=== PATIENT | female | born 1940 | race Caucasian/White ===

== ENCOUNTER → 2016-11-14 | Outpatient (CLI) | payer OTHER, BC ==
[2016-11-14 13:27] LABS: ALT/SGPT 43 U/L (12-78); AST/SGOT 25 U/L (15-37); BLOOD UREA NITROGEN 32 mg/dl (7-18); BUN/CREATININE RATIO 26.4 (10-20); CALCIUM 9.8 mg/dl (8.5-10.1); CARBON DIOXIDE 29 mmol/L (21-32); CHLORIDE 101 mmol/L (98-107); CHOLESTEROL 171 mg/dl (0-200); GLUCOSE 152 mg/dl (70-99); POTASSIUM 3.7 mmol/L (3.5-5.1); SODIUM 139 mmol/L (136-145); TRIGLYCERIDES 275 mg/dl (0-150); VERY LOW DENSITY LIPOPROT CALC 55 mg/dl
[2016-11-14 13:31] LABS: CHOLESTEROL/HDL RATIO 4.4; HDL CHOLESTEROL 39 mg/dl; LDL CHOLESTEROL CALCULATED 77 mg/dl
[2016-11-14 13:48] LABS: ESTIMATED AVERAGE GLUCOSE 177 mg/dl; HA1C FLAG Normal (Normal)
== END | disposition home or self-care (01) ==
LOC: C.LABMFLN 07:40
PROVIDERS: ATTEND Family Medicine
DX: E78.5 Hyperlipidemia, unspecified (principal); I25.10 Atherosclerotic heart disease of native coronary artery without angina pectoris; I10 Essential (primary) hypertension; E11.9 Type 2 diabetes mellitus without complications

== ENCOUNTER → 2017-04-21 | Outpatient (CLI) | payer OTHER ==
[2017-04-21 13:47] LABS: ALT/SGPT 74 U/L (12-78); BLOOD UREA NITROGEN 33 mg/dl (7-18); BUN/CREATININE RATIO 23.8 (10-20); CALCIUM 9.9 mg/dl (8.5-10.1); CARBON DIOXIDE 29 mmol/L (21-32); CHLORIDE 102 mmol/L (98-107); CHOLESTEROL 182 mg/dl (0-200); GLUCOSE 141 mg/dl (70-99); POTASSIUM 4.1 mmol/L (3.5-5.1); SODIUM 137 mmol/L (136-145)
[2017-04-21 13:50] LABS: ALB/GLOB RATIO 1.5 (0.9-2); ALKALINE PHOSPHATASE 40 U/L (45-117); AST/SGOT 41 U/L (15-37); CHOLESTEROL/HDL RATIO 4.3; HDL CHOLESTEROL 42 mg/dl; LDL CHOLESTEROL CALCULATED 74 mg/dl; TRIGLYCERIDES 329 mg/dl (0-150); VERY LOW DENSITY LIPOPROT CALC 66 mg/dl
[2017-04-21 14:01] LABS: RATIO 32.6 mcg/mg (0-30.0)
[2017-04-21 14:03] LABS: ESTIMATED AVERAGE GLUCOSE 143 mg/dl; HA1C FLAG Normal (Normal)
--- NOTE | 2017-04-28 14:05 | CODING QUERY MEDICAL NECESSITY ---
CQSUPPORTING DIAGNOSIS NEEDED A supporting diagnosis is required for the test/procedure performed on this patient in order for us to be reimbursed by the patient's insurance. Please provide a supporting diagnosis for the following test/procedure listed below next to the test name along with your signature. *If there is no additional diagnosis for this patient that would support the following test/procedure please document that below next to the test/procedure. Test(s)/Procedure(s) that require a supporting diagnosis: VANDANA 04/21/17 GLYCATED HEMOGLOBIN TEST Provider Signature: Date: Thank you Jamila Desir [facility] Information Management Once completed, please kindly fax back to [phone] For questions please call [phone]
== END | disposition home or self-care (01) ==
LOC: C.LABMFLN 10:30
PROVIDERS: ATTEND Family Medicine
DX: E78.5 Hyperlipidemia, unspecified (principal); I25.10 Atherosclerotic heart disease of native coronary artery without angina pectoris; I10 Essential (primary) hypertension

== ENCOUNTER → 2017-07-04 | Outpatient (CLI) | payer OTHER ==
[2017-07-04 18:07] LABS: BLOOD UREA NITROGEN 30 mg/dl (7-18); BUN/CREATININE RATIO 18.8 (10-20); CALCIUM 10.2 mg/dl (8.5-10.1); CARBON DIOXIDE 26 mmol/L (21-32); CHLORIDE 102 mmol/L (98-107); GLUCOSE 113 mg/dl (70-99); SODIUM 136 mmol/L (136-145)
== END | disposition home or self-care (01) ==
LOC: C.LABMFLN 11:14
PROVIDERS: ATTEND Family Medicine
DX: I10 Essential (primary) hypertension (principal)

== ENCOUNTER → 2017-10-02 | Outpatient (CLI) | payer OTHER ==
[2017-10-02 13:16] LABS: HEMOGLOBIN A1C 6.9 % (4.5-5.6)
[2017-10-02 13:34] LABS: ALBUMIN 4.6 gm/dl (3.4-5.0); ALT/SGPT 48 U/L (12-78); BLOOD UREA NITROGEN 39 mg/dl (7-18); CALCIUM 9.9 mg/dl (8.5-10.1); CARBON DIOXIDE 27 mmol/L (21-32); CHOLESTEROL 152 mg/dl (0-200); CREATININE 1.32 mg/dl (0.60-1.20); GLUCOSE 117 mg/dl (70-99); SODIUM 136 mmol/L (136-145)
[2017-10-02 13:37] LABS: ALKALINE PHOSPHATASE 43 U/L (45-117); AST/SGOT 27 U/L (15-37); LDL CHOLESTEROL CALCULATED 69 mg/dl; TOTAL PROTEIN 7.3 gm/dl (6.4-8.2)
[2017-10-02 14:12] LABS: CREATININE RANDOM URINE 87.3 mg/dl
== END | disposition home or self-care (01) ==
LOC: C.LABMFLN 09:01
PROVIDERS: ATTEND Family Medicine
DX: E78.5 Hyperlipidemia, unspecified (principal); I25.10 Atherosclerotic heart disease of native coronary artery without angina pectoris; E11.9 Type 2 diabetes mellitus without complications; I10 Essential (primary) hypertension

== ENCOUNTER → 2018-03-16 | Outpatient (CLI) | payer OTHER ==
[2018-03-16 18:37] LABS: ALBUMIN 4.4 gm/dl (3.4-5.0); ALKALINE PHOSPHATASE 68 U/L (45-117); ALT/SGPT 177 U/L (12-78); AST/SGOT 31 U/L (15-37); BLOOD UREA NITROGEN 42 mg/dl (7-18); CARBON DIOXIDE 27 mmol/L (21-32); CREATININE 1.33 mg/dl (0.60-1.20); GLUCOSE 95 mg/dl (70-99); LIPASE 229 U/L (73-393); POTASSIUM 3.7 mmol/L (3.5-5.1); SODIUM 137 mmol/L (136-145); TOTAL PROTEIN 7.5 gm/dl (6.4-8.2)
== END | disposition home or self-care (01) ==
LOC: C.LABMFLN 15:09
PROVIDERS: ATTEND Family Medicine
DX: R10.13 Epigastric pain (principal)

== ENCOUNTER → 2018-03-27 | Outpatient (CLI) | payer OTHER ==
[2018-03-27 13:28] LABS: ALBUMIN 4.2 gm/dl (3.4-5.0); TOTAL PROTEIN 7.2 gm/dl (6.4-8.2)
== END | disposition home or self-care (01) ==
LOC: C.LABMFLN 08:52
PROVIDERS: ATTEND Family Medicine
DX: R74.0 Nonspecific elevation of levels of transaminase and lactic acid dehydrogenase [LDH] (principal)

== ENCOUNTER 2019-07-17 05:06 | Inpatient (IN) ==
--- NOTE | 2019-06-14 16:07 | PAT Medication Instructions ---
Medication Instructions Date of Service June 14, 2019 Home Medications Medication Instructions Recorded diphenhydramine 25 mg capsule 25 mg PO DAILY PRN #90 cap 01/29/19 hydralazine 25 mg tablet 25 mg PO TID #270 tab 01/29/19 lancets 30 gauge #100 ea 01/29/19 metformin 500 mg tablet 500 mg PO BID #180 tab 01/29/19 nitroglycerin 0.4 mg sublingual 0.4 mg SL Q5M PRN #30 tab 01/29/19 tablet lancets 33 gauge #30 ea 02/20/19 OneTouch Verio strips #100 ea NS 03/28/19 tramadol 50 mg tablet 50 mg PO BID PRN #30 tab 05/30/19 diphenhydramine 25 mg capsule 25 mg PO DAILY PRN hydralazine 25 mg tablet 25 mg PO TID metformin 500 mg tablet 500 mg PO BID nitroglycerin 0.4 mg sublingual tablet 0.4 mg SL Q5M PRN ipratropium bromide 42 mcg (0.06 %) nasal spray 2 sprays INTNAS HS tramadol 50 mg tablet 50 mg PO BID PRN aspirin [Adult Aspirin Regimen] 81 mg PO QAM atorvastatin 80 mg PO HS cetirizine [Zyrtec] 10 mg PO HS cholecalciferol (vitamin D3) 1,000 units PO QAM diltiazem HCl 360 mg PO QAM fenofibrate 160 mg PO QAM lisinopril 40 mg PO QAM omega 3-ujy-swd-fish oil [Fish Oil] 1 cap PO BID pantoprazole 40 mg PO QAM triamcinolone acetonide [Nasacort] 1 - 2 spray INTRANASAL QAM Continue as directed nitroglycerin 0.4 mg sublingual tablet 0.4 mg SL Q5M PRN (if needed) STOP taking 2 weeks before surgery (or as soon as possible if surgery is within 2 weeks) omega 1-spe-uoa-fish oil [Fish Oil] 1 cap PO BID STOP taking 48 hours before surgery fenofibrate 160 mg PO QAM DO NOT take the morning of surgery diphenhydramine 25 mg capsule 25 mg PO DAILY PRN metformin 500 mg tablet 500 mg PO BID cholecalciferol (vitamin D3) 1,000 units PO QAM lisinopril 40 mg PO QAM Take morning of surgery With a small sip of water, OTHERWISE NOTHING TO EAT OR DRINK AFTER MIDNIGHT: hydralazine 25 mg tablet 25 mg PO TID tramadol 50 mg tablet 50 mg PO BID PRN (okay to take up to 4 hours prior to surgery if needed) aspirin [Adult Aspirin Regimen] 81 mg PO QAM diltiazem HCl 360 mg PO QAM pantoprazole 40 mg PO QAM triamcinolone acetonide [Nasacort] 1 - 2 spray INTRANASAL QAM Take evening before surgery diphenhydramine 25 mg capsule 25 mg PO DAILY PRN (if needed) hydralazine 25 mg tablet 25 mg PO TID metformin 500 mg tablet 500 mg PO BID ipratropium bromide 42 mcg (0.06 %) nasal spray 2 sprays INTNAS HS tramadol 50 mg tablet 50 mg PO BID PRN (if needed) atorvastatin 80 mg PO HS cetirizine [Zyrtec] 10 mg PO HS Other Notes If you have any questions please call us at [phone] or [phone] or [phone] or [phone]
--- NOTE | 2019-06-18 09:40 | Anesthesiology Consultation ---
Date of Service June 18, 2019 Assessment & Plan (1) Encounter for pre-operative examination: - Awaiting review preop testing (labs). - Awaiting cardiology office visit (per patient, scheduled to see cardiology 06/21). - Check [facility] AM DOS Chart Review Chart Review: Patient seen in Pre Admission Testing History Surgery Operation Date: 07/17/19 09:00 Proposed Procedures p Left Total Knee Arthroplasty - Shmuel Beach MD Height/Weight Height: 5 ft 2 in Weight: 75.7 kg Allergies Allergy/AdvReac Type Severity Reaction Status Date / Time cefuroxime [From Ceftin] Allergy Unknown NAUSEA AND Verified 06/11/19 11:30 VOMITING ciprofloxacin [From Cipro] Allergy Unknown NAUSEA Verified 06/11/19 11:30 VOMITING-W ORAL FORM nalbuphine [From Nubain] Allergy Unknown Unknown Verified 06/11/19 11:30 codeine AdvReac Unknown NAUSEA AND Verified 06/11/19 11:30 VOMITING hydrocodone [From Vicodin] AdvReac Unknown NAUSEA AND Verified 06/11/19 11:30 VOMITING Medications Home Medications Medication Instructions Recorded Confirmed Last Taken diphenhydramine 25 mg capsule 25 mg PO DAILY PRN #90 cap 01/29/19 06/11/19 Unknown hydralazine 25 mg tablet 25 mg PO TID #270 tab 01/29/19 06/11/19 Unknown lancets 30 gauge #100 ea 01/29/19 06/11/19 Unknown metformin 500 mg tablet 500 mg PO BID #180 tab 01/29/19 06/11/19 Unknown nitroglycerin 0.4 mg sublingual 0.4 mg SL Q5M PRN #30 tab 01/29/19 06/11/19 Unknown tablet lancets 33 gauge #30 ea 02/20/19 06/11/19 Unknown OneTouch Verio strips #100 ea NS 03/28/19 06/11/19 Unknown ipratropium bromide 42 mcg (0.06 2 sprays INTNAS HS ml 05/29/19 06/11/19 Unknown %) nasal spray tramadol 50 mg tablet 50 mg PO BID PRN #30 tab 05/30/19 06/11/19 Unknown aspirin [Adult Aspirin Regimen] 81 mg PO QAM 06/10/19 06/11/19 Unknown atorvastatin 80 mg PO HS 06/10/19 06/11/19 Unknown cetirizine [Zyrtec] 10 mg PO HS 06/10/19 06/11/19 Unknown cholecalciferol (vitamin D3) 1,000 units PO QAM 06/10/19 06/11/19 Unknown diltiazem HCl 360 mg PO QAM 06/10/19 06/11/19 Unknown fenofibrate 160 mg PO QAM 06/10/19 06/11/19 Unknown lisinopril 40 mg PO QAM 06/10/19 06/11/19 Unknown omega 2-oax-ocj-fish oil [Fish Oil] 1 cap PO BID 06/10/19 06/11/19 Unknown pantoprazole 40 mg PO QAM 06/10/19 06/11/19 Unknown triamcinolone acetonide [Nasacort] 1 - 2 spray INTRANASAL QAM 06/10/19 06/11/19 Unknown Past Medical History Medical History CAD (coronary artery disease) s/p CABG X 2 (1995) Cancer malignant melanoma arm s/p excision Chronic back pain Diabetes mellitus, type 2 NIDDM Diverticular disease GERD (gastroesophageal reflux disease) controlled Hiatal hernia small Hyperlipidemia Hypertension Obesity Exercise / Class Metabolic Activity III < 4 Walking/Shop/Light housework Past Family History Family History Son Family history of diabetes mellitus Brother Family history of diabetes mellitus Sister Family history of diabetes mellitus Other No pertinent family history Past Surgical History Surgical History H/O colonoscopy History of cardiac cath 1995= NO STENTS/SUBSEQUENT CABG X 2 History of colectomy FOR DIVERTICULITIS History of esophagogastroduodenoscopy (EGD) + DILITATION History of knee surgery History of tubal ligation Hx of bilateral breast reduction surgery Hx of breast reduction, elective Status post creation of urethral sling by suprapubic approach Past Anesthesia History No Hx of Anesthesia Complications and No Family Hx of Anesthesia Complications History of PONV No Hx of PONV and Hx of Motion Sickness Social History Smoking Status: Never smoker Do You Dip or Chew Tobacco: No Hx Alcohol Use: No Hx Substance Use: No Review of Systems Reflux controlled. Patient denies chest pain, shortness of breath, cough, wheezing, palpitations. Physical Exam Vital Signs VITALS BP 130/77 P 76 TEMP 98.4 SP02 95%RA RESP 18 PHYSICAL Full neck and c-spine range of motion. Full TMJ range of motion. TMD 3 finger breaths Mallampati Score 1 Dentition: missing molars Lungs: clear throughout to auscultation Cardiac: regular rate and rhythm, no murmurs noted Spine: normal Carotid arteries: negative bruit Extremities: no edema Testing Laboratory Results 06/03/19 WBC 4.87 H/H 11.4/33.6 PLATELETS 267 SODIUM 138 POTASSIUM 4.3 CHLORIDE 102 CO2 25 BUN 26 CREATININE 1.2 GLUCOSE 137 Electrocardiogram Date: 06/02/19 NSR at 83bpm. "Normal" EKG. Chest X-Ray Date: 06/01/19 Partial elevation/eventration of the right hemidiaphragm. No focal parenchymal consolidation. No pulmonary vascular congestion. Somewhat tortuous thoracic aorta with atherosclerosis. s/p median sternotomy.
[2019-06-18 11:18] LABS: Basophils # (auto) 0.04 K/uL (0-0.2); Basophils % (auto) 0.8 %; Eosinophils # (auto) 0.06 K/uL (0-0.5); Eosinophils % (auto) 1.3 %; Hematocrit (blood only) 37.8 % (37-47); Hemoglobin 12.8 g/dL (12.0-16.0); Lymphocytes # (auto) 1.97 K/uL (1.2-3.4); Lymphocytes % (auto) 41.6 %; Mean Corpuscular Hemoglobin 29.8 pg (25-34); Mean Corpuscular Hgb Conc 33.9 g/dL (32-36); Mean Corpuscular Volume 88.1 fL (80-100); Mean Platelet Volume 10.8 fL (7.4-10.4); Monocytes # (auto) 0.41 K/uL (0.11-0.59); Monocytes % (auto) 8.6 %; Neutrophils # (auto) 2.26 K/uL (1.4-6.5); Neutrophils % (auto) 47.7 %; Platelet Count 305 K/uL (130-400); RDW Coefficient of Variation 13.3 % (11.5-14.5); RDW Standard Deviation 42.5 fL (36.4-46.3); Red Blood Count 4.29 M/uL (4.2-5.4); White Blood Count 4.74 K/uL (4.8-10.8)
[2019-06-18 11:22] LABS: Appearance Urine Clear (Clear); Bacteria Urine Automated 4+ (Negative); Bilirubin Urine Negative (Negative); Blood Urine Negative (Negative); Cast Urine Automated 0 /lpf (0-5); Color Urine Yellow; Glucose Urine UA Negative (Negative); Ketones Urine Negative (Negative); Leukocyte Esterase Urine 1+ (Negative); Nitrite Urine Negative (Negative); Protein Urine Negative (Negative); RBC Urine Automated 0-4 /hpf (0-4); Specific Gravity Urine 1.019 (1.000-1.030); Urobilinogen Urine Negative (Negative)
[2019-06-18 11:26] LABS: Estimated Average Glucose 171 mg/dl; Hemoglobin A1C 7.6 % (4.5-5.6)
[2019-06-18 11:58] LABS: Partial Thromboplastin Time 26.2 Seconds (21.0-31.0); Prothrombin Time 10.2 Seconds (9.0-12.0)
--- NOTE | 2019-07-16 18:40 | History and Physical Report ---
DATE OF ADMISSION: 07/17/2019 CHIEF COMPLAINT: Chronic left knee pain. HISTORY OF PRESENT ILLNESS: This is an 79-year-old female patient of Dr. Beach'minerva complaining of chronic left knee pain, longstanding, now progressively getting worse. The patient has failed conservative treatment including intra-articular injections, anti-inflammatories, tramadol, home exercise program and the use of a brace. The patient has been diagnosed with end-stage osteoarthritis per clinical and radiographic exams. The patient wished to proceed with a left total knee arthroplasty. PAST MEDICAL HISTORY: Hypertension, hypercholesterolemia, diabetes mellitus, acid reflux, hiatal hernia. SOCIAL HISTORY: Nonsmoker, nondrinker. FAMILY HISTORY: Noncontributory. REVIEW OF SYSTEMS: Chronic left knee pain and instability. Otherwise, denies any shortness of breath, chest pain, nausea, vomiting or any other joint complaints. PAST SURGICAL HISTORY: Tubal ligation, left and right breast reduction surgery, and bypass surgery. ALLERGIES: CODEINE, HYDROCODONE, CIPROFLOXACIN, CEFUROXIME, FENOFIBRATE, AND nalbuphine.. Again, she is able to use tramadol. PHYSICAL EXAMINATION: GENERAL: A well-developed, well-nourished 79-year-old female in no acute distress. She is alert and oriented x3 and pleasant. HEENT: Normocephalic, atraumatic. Extraocular motions are intact. Pupils are equal and reactive to light. HEART: Regular rate and rhythm, no murmurs. LUNGS: Clear. ABDOMEN: Soft, nontender, bowel sounds present. EXTREMITIES: Left knee reveals a varus deformity with limited range of motion of negative 10 to 130 degrees. She has a mild effusion with medial joint line tenderness. She has 5/5 strength. Neurologically and neurovascularly, she is intact in her left lower extremity. DIAGNOSES: Left knee end-stage osteoarthritis, hypertension, hypercholesterolemia, diabetes mellitus, acid reflux, hiatal hernia. PLAN: The patient was advised of her diagnosis. Indications, risks, benefits, postop course have all been reviewed. The patient wished to proceed with a left total knee arthroplasty. Necessary consent forms, preoperative testing and clearances will be obtained. MALDONADO
[2019-07-17] MEDS: LR 500ML BOLUS, THEN 15ML/HR IV SCH ×2 (05:46→06:12)
[2019-07-17] MEDS ORDERED: ACETAMINOPHEN 500 MG TAB PO SCH (06:00)
[2019-07-17] MEDS ORDERED: METOCLOPRAMIDE HCL 10 MG TABLET PO SCH (06:00)
[2019-07-17] MEDS ORDERED: ROPIVACAINE 0.5% HCL/PF 150 MG, BUPIVACAINE 0.5% MPF 30 ML, EPINEPHrine 30MG/30ML (OR U... INSTIL SCH (06:00)
[2019-07-17] MEDS ORDERED: VANCOMYCIN HCL 1,250 MG in SODIUM CHLORIDE 0.9% 250 ML IV SCH ×2 (06:00→18:00)
[2019-07-17] MEDS ORDERED: GABAPENTIN 300 MG CAP PO SCH (06:00)
[2019-07-17] MEDS ORDERED: TRANEXAMIC ACID 1,000 MG **IV Pre-op IV SCH (06:00)
[2019-07-17] MEDS ORDERED: FAMOTIDINE 20 MG TAB PO SCH (06:00)
[2019-07-17] MEDS ORDERED: CeleBREX 200 MG CAP PO SCH (06:00)
[2019-07-17] MEDS ORDERED: BUPIVACAINE 0.5 % 5 MG/1 ML PF 10ML VIAL ONE (06:20)
[2019-07-17] MEDS ORDERED: BUPIVACAINE/EPINEPHRINE 0.25% 1:200,000 30 ML VIAL ONE (06:20)
[2019-07-17] MEDS ORDERED: DEXAMETHASONE SOD INJ 4 MG/ML VIAL ONE (06:21)
[2019-07-17] MEDS ORDERED: TRANEXAMIC ACID 1,000 MG **IV Intra-op IV SCH (06:30)
[2019-07-17] MEDS ORDERED: PROPOFOL IV EMULSION 10 MG/ML 20 ML VIAL IV ONE (06:31)
[2019-07-17] MEDS ORDERED: fentaNYL citrate 100 MCG/2 ML VIAL ONE (06:31)
[2019-07-17] MEDS ORDERED: ORTHO JOINT ANESTHETIC ONE (06:31)
[2019-07-17] MEDS ORDERED: MIDAZOLAM HCL 1 MG/ML 2ML VIAL ONE (06:31)
[2019-07-17] MEDS ORDERED: LIDOCAINE HCL 2% 2 ML VIAL/AMP(20MG/ML) INFIL ONE (06:31)
[2019-07-17] MEDS ORDERED: BACITRACIN INJ 50,000 UNIT VIAL ONE (06:32)
--- NOTE | 2019-07-17 06:43 | History & Physical Bridge Note ---
Date of Service July 17, 2019 History & Physical Bridge Note I have examined the patient, reviewed the History & Physical and in the interval since the performance of the History & Physical I have noted the following changes of clinical significance: no changes noted
[2019-07-17] MEDS ORDERED: ONDANSETRON INJ 2 MG/ML 2 ML VIAL ONE (07:30)
[2019-07-17] MEDS ORDERED: fentaNYL citrate 100 MCG/2 ML VIAL IV PRN (08:01)
[2019-07-17] MEDS ORDERED: ATROPINE SULFATE 0.1 MG/ML 10ML SYR IV PRN (08:01)
[2019-07-17] MEDS ORDERED: ONDANSETRON INJ 2 MG/ML 2 ML VIAL IV PRN ×2 (08:01→09:42)
[2019-07-17] MEDS ORDERED: ePHEDrine sulfate 50 MG/ML AMP IV PRN (08:01)
--- NOTE | 2019-07-17 08:24 | Operative Report ---
Post Operative Report Pre & Post Diagnosis Operation Date: 07/17/19 07:00 Pre-Op Diagnosis: LEFT KNEE OSTEOARTHRITIS Post-Op Diagnosis: LEFT KNEE OSTEOARTHRITIS I identified the patient and participated in the time-out.: Yes Procedure Operation Date: 07/17/19 07:00 Actual Procedures p Left Total Knee Arthroplasty(Left) - Shmuel Beach MD Surgeon Shmuel eBach MD Brushing Machine Operator Margarito ARDON Estimated Blood Loss 2 Findings Consistent with Post-Op Diagnosis Specimens Bone cuts Drains 2 Hemovac Anesthesia Type MAC Spinal Regional Complications none Disposition Accompanied Patient To Recovery: No Disposition: Recovery Room Indications 79-year-old female with chronic bilateral knee osteoarthritis left greater than right. Patient has tricompartmental osteoarthritis [id number] medial compartment varus knee. Description of Procedure Patient taken to the operating room the size under spinal MAC regional anesthesia. Patient was placed supine on the operating table. A pneumatic tourniquet was placed about the left upper thigh. The left lower extremity was prepped and draped in sterile fashion. Knee exam demonstrated 15 degree flexion contracture with flexion 130 degrees no instability. The leg was elevated exsanguinated with an Esmarch bandage and pneumatic tourniquet was raised to 300 millimeters of mercury. Skin incised sharply in longitudinal fashion. Subcutaneous flaps elevated. Incision was made through the medial retinaculum extending up in the mid third of the quadriceps tendon and down to the medial tibial tubercle. Intra-articular findings demonstrated tricompartment osteoarthritis with [id number] medial compartment and degeneration ACL. The [employer] triathlon total knee arthroplasty system was used. To expose the knee the infrapatellar fat pad was resected. The meniscal remnants and cruciate ligaments were resected. The anterior fat pad over the femur in the area of the anterior flange of the femoral component was resected. Lateral synovial bands release. The femur was exposed. An intramedullary drill hole was made into the canal. A guide anastasia was placed. Distal femoral cutting guide was adjusted to resect a 5 degree valgus cut with 10 millimeters distal femur resected. The knee was extended and a subperiosteal peel lateral release was performed around the patella. Patella width was measured and width was reproduced using a freehand cut technique and a 33 symmetrical patella component. The 3 drill holes were made and the excess lateral facet was beveled off to prevent any impingement. Attention was taken back to the femur which was exposed with retractors and the femoral sizing guide was pinned in position. The drill holes were placed in 3 of external rotation to match epicondylar axis. Femur sized for a 5 component. The 4-in-1 cutting block was placed and then the anterior posterior and chamfer cuts are made. The tibia was then subluxed. The external tibial cutting guide was just to make a perpendicular cut to the long axis of the tibia below the most deficient bone loss side. A lamina hide spreader was used and the flexion extension gaps were balanced. All posterior osteophytes removed. All meniscal remnants were resected. The tibia exposed and the trial tibial component size 4 was externally rotated in line with the tibial tubercle and pinned in position. The punch for stem was used. The notch cutting device was centered appropriately and the femoral notch cut was made. The femoral trial was inserted. Trial tibial inserts were placed and size 11 gave balanced ligaments through flexion and extension. Patella tracking was assessed. The patella tracked centrally. The trial components were then removed and the orthomix anesthetic cocktail was injected per protocol. The knee was then copiously irrigated with pulsatile lavage antibiotic solution. Final components were then cemented with Simplex cement. Final components were 5 posterior stabilized [place] triathlon left femoral component with pegs, for primary tibial baseplate, 4 x 11 millimeter posterior stabilized tibial poly-insert, 33 symmetrical patella. While the cement cured the Betadine soak was used per protocol. After cement cured further pulsatile lavage irrigation performed and 2 Hemovac drains were brought out laterally. The quadriceps tendon and medial retinaculum were closed with figure of 8 #1 Vicryl sutures. The knee was taken through full range of motion and the repair was secure. The subcutaneous tissues were closed with 2-0 Vicryl sutures. Skin was closed with elian. Sterile Silverlon dressings were applied. Patient procedure well. Margarito ARDON was my physician switchboard operator assistant who assisted in patient positioning prepping and draping,leg positioning ,soft tissue retraction and instrument management and participated in the closing and will participate in postoperative care of the patient. The patient tolerated the procedure well. I attest to the content of the Intraoperative Record and any orders documented therein. Any exceptions are noted below.
--- NOTE | 2019-07-17 09:25 | Anesthesiology Progress Note ---
Date of Service July 17, 2019 Anesthesia Post Procedure Vital Signs Vital Signs: Temp Pulse Pulse Resp BP Pulse Ox 07/17/19 09:20 36.7 C 77 14 181/75 H 95 07/17/19 09:10 78 14 180/71 H 94 07/17/19 09:00 82 14 174/77 H 96 07/17/19 08:53 36.7 C 82 12 164/79 H 96 07/17/19 05:43 36.8 C 74 18 181/89 H 94 Transfer of Care Handoff Completed per policy Notes Mental Status: alert / awake / arousable Patient Amnestic to Procedure: Yes Nausea / Vomiting: adequately controlled Pain: adequately controlled Airway Patency, RR, SpO2: stable & adequate BP & HR: stable & adequate Hydration State: stable & adequate Neuraxial Anesthesia: was administered and sensory block is resolving Anesthetic Complications: no major complications apparent
--- NOTE | 2019-07-17 09:27 | XRay Report ---
XR knee LT 1 or 2V routine CLINICAL HISTORY: Surgical Post Op COMPARISON: None. DISCUSSION: There are postsurgical changes of a total left knee arthroplasty and patellar resurfacing . The femoral tibial components appear well seated. Overlying skin elian and surgical drains are ev ident. There is air within the soft tissues consistent with recent surgery. IMPRESSION: Postsurgical changes of a total left knee arthroplasty. Electronically signed by: Tunde Weber M.D. 07/17/2019 9:25 AM
[2019-07-17] MEDS ORDERED: NITROGLYCERIN SL 0.4 MG/TAB TAB SL PRN (09:42)
[2019-07-17] MEDS ORDERED: BISACODYL 10 MG SUPP PR PRN (09:42)
[2019-07-17] MEDS ORDERED: HYDROmorphone INJ 0.5 MG/0.5 ML SYR IV PRN (09:42)
[2019-07-17] MEDS ORDERED: VANCOMYCIN CONSULT ACTIVE PRN (09:42)
[2019-07-17] MEDS ORDERED: NALOXONE HCL 0.4 MG/1 ML VIAL/CARP IV PRN (09:42)
[2019-07-17] MEDS ORDERED: MAGNESIUM HYDROXIDE SUSP 30 ML UDC PO PRN (09:42)
[2019-07-17] MEDS ORDERED: OXYCODONE HCL IR 5 MG TAB (IMMEDIATE RELEASE) PO PRN (09:42)
[2019-07-17] MEDS ORDERED: PHARMACY GLYCEMIC MGMT CONSULT PRN (10:10)
[2019-07-17] MEDS ORDERED: NovoLIN-N (NPH) PER UNIT CHARGE SQ ONE ×2 (10:45→17:00)
[2019-07-17] MEDS: carvediloL 3.125 MG TAB PO SCH ×2 (10:55→20:11)
[2019-07-17] MEDS: INSULIN ASPART 100 UNITS/ML 3 ML PEN SC SCH ×5 (11:00→23:26)
[2019-07-17] MEDS: DOCUSATE SODIUM 100 MG CAP PO SCH ×3 (12:06→20:19)
[2019-07-17] MEDS: ASPIRIN 81 MG ECTAB PO SCH ×2 (12:06→20:11)
[2019-07-17] MEDS: LISINOPRIL 40 MG TAB PO SCH (12:08)
[2019-07-17] MEDS: PANTOprazole 40 MG TAB PO SCH (12:08)
[2019-07-17] MEDS: MULTIVITAMIN TAB PO SCH (12:09)
[2019-07-17] MEDS: TRIAMCINOLONE ACET NASAL SPRAY 10.8ML BTL SCH (12:10)
[2019-07-17] MEDS: CHOLECALCIFEROL 1,000 UNITS TAB PO SCH (12:10)
--- NOTE | 2019-07-17 12:24 | Hospitalist Consultation ---
Date of Consultation July 17, 2019 Assessment & Plan (1) Benign essential hypertension: Continue home medication carvedilol 3.125 mg p.o. twice daily hydralazine 25 mg p.o. 3 times daily, lisinopril 40 mg p.o. every morning. Monitor blood pressure every 4 hours. We will carefully upgrade medication if blood pressure continues to be elevated because patient is just status post the procedure and too much of blood pressure medicine also can cause hypotension and falls. Would observe for now patient blood pressure without adding new medicine. Present on Admission?: Yes (2) 3-vessel CAD: Continue aspirin 81 mg p.o. every morning when appropriate pair Ortho. Continue omega 3 fish oil 1 capsule p.o. twice daily. Continue atorvastatin 80 mg p.o. nightly. Lipid panel pending. Present on Admission?: Yes (3) Hyperlipidemia: Continue atorvastatin 80 mg p.o. nightly. Continue fenofibrate 160 mg p.o. every morning lipid panel pending. Present on Admission?: Yes (4) Type 2 diabetes mellitus: Use sliding scale insulin. Accu-Cheks before meals and at bedtime. A1c 7.6 from June 18, 2019. Patient is at home on metformin. Hold metformin while patient hospitalized to prevent side effects hypoglycemia and possible kidney injury while patient is at the hospital and have possibility to have radiographic procedures with contrast done. Glycemic control per pharmacy. Present on Admission?: Yes (5) Vitamin D deficiency: Continue vitamin D 3000 units p.o. every morning. Present on Admission?: Yes (6) Encounter for pre-operative examination: As per primary team Present on Admission?: Yes History of Present Illness Reason for Consultation: Hypertension Attending Physician: Shmuel Beach MD History of Present Illness Patient is a 79 years old female with past medical history of benign essential hypertension, coronary artery disease, diabetes mellitus type 2, hyperlipidemia, lumbar radiculopathy who underwent this morning left knee arthroplasty for left knee osteoarthritis. Patient tolerated procedure well and had elevated blood pressure in the PACU status post the procedure in the range of systolic 181-178 and diastolic 89-79. Was given her morning meds and her blood pressure improved to 155/73. Patient is resting comfortably in the bed and she reports no pain at this time. Patient denies fever, chills, chest pain, shortness of breath, abdominal pain, frequency, urgency. Her left knee is wrapped up and she reports no issues with it. Allergies Allergy/AdvReac Type Severity Reaction Status Date / Time nalbuphine [From Nubain] Allergy Unknown Unknown Verified 07/17/19 05:34 cefuroxime [From Ceftin] AdvReac Unknown NAUSEA AND Verified 07/17/19 05:34 VOMITING ciprofloxacin [From Cipro] AdvReac Unknown NAUSEA Verified 07/17/19 05:34 VOMITING-W ORAL FORM codeine AdvReac Unknown NAUSEA AND Verified 07/17/19 05:34 VOMITING hydrocodone [From Vicodin] AdvReac Unknown NAUSEA AND Verified 07/17/19 05:34 VOMITING Home Medications Home Medications Medication Instructions Recorded Confirmed Type diphenhydramine HCl 25 mg capsule 25 mg PO DAILY PRN #90 cap 01/29/19 07/17/19 Rx hydralazine 25 mg tablet 25 mg PO TID #270 tab 01/29/19 07/17/19 Rx lancets 30 gauge #100 ea 01/29/19 06/11/19 Rx metformin 500 mg tablet 500 mg PO BID #180 tab 01/29/19 07/17/19 Rx nitroglycerin 0.4 mg sublingual 0.4 mg SL Q5M PRN #30 tab 01/29/19 07/17/19 Rx tablet lancets 33 gauge #30 ea 02/20/19 06/11/19 Rx OneTouch Verio #100 ea NS 03/28/19 06/11/19 Rx ipratropium bromide 42 mcg (0.06 2 sprays INTNAS HS ml 05/29/19 07/17/19 History %) nasal spray tramadol 50 mg tablet 50 mg PO BID PRN #30 tab 05/30/19 07/17/19 Rx aspirin [Adult Aspirin Regimen] 81 mg PO QAM 06/10/19 07/17/19 History atorvastatin 80 mg PO HS 06/10/19 07/17/19 History cetirizine [Zyrtec] 10 mg PO HS 06/10/19 07/17/19 History cholecalciferol (vitamin D3) 1,000 units PO QAM 06/10/19 07/17/19 History fenofibrate 160 mg PO QAM 06/10/19 07/17/19 History lisinopril 40 mg PO QAM 06/10/19 07/17/19 History omega 5-[id number]-fish oil [Fish Oil] 1 cap PO BID 06/10/19 07/17/19 History pantoprazole 40 mg PO QAM 06/10/19 07/17/19 History triamcinolone acetonide [Nasacort] 1 - 2 spray INTRANASAL QAM 06/10/19 07/17/19 History carvedilol 3.125 mg PO BID 06/21/19 07/17/19 History Patient History Medical History CAD (coronary artery disease) s/p CABG X 2 (1995) Cancer malignant melanoma arm s/p excision Chronic back pain Diabetes mellitus, type 2 NIDDM Diverticular disease GERD (gastroesophageal reflux disease) controlled Hiatal hernia small Hyperlipidemia Hypertension Obesity Surgical History H/O colonoscopy History of cardiac cath 1995= NO STENTS/SUBSEQUENT CABG X 2 History of colectomy FOR DIVERTICULITIS History of esophagogastroduodenoscopy (EGD) + DILITATION History of knee surgery History of tubal ligation Hx of bilateral breast reduction surgery Hx of breast reduction, elective Status post creation of urethral sling by suprapubic approach Family History Son Family history of diabetes mellitus Brother Family history of diabetes mellitus Sister Family history of diabetes mellitus Other No pertinent family history Social History Preferred Language: Lao Communication Ability: Effective Surgical Aides Teacher Required: No Beliefs That Will Affect Care: None Current Living Situation: Spouse Other Information That Helps Us Care for You: No Feels Safe at Home: Yes Safety Concerns: Feels Safe At This Time Smoking Status: Never smoker Do You Dip or Chew Tobacco: No ; Second Hand Exposure: No ; Hx Alcohol Use: No Hx Substance Use: No Review of Systems Review of Systems: All systems reviewed & are unremarkable except as noted in HPI & below Physical Exam Constitutional: WD/WN, vitals as above well developed and + obese Eyes: PERRL, conjunctivae normal, anicteric sclerae ENMT: external ear and nose normal, oropharynx normal Mouth: no dentition abnormality Mallampati Class: II Neck: trachea midline, no thyromegaly normal visual inspection Respiratory: normal respiratory effort, lungs clear to auscultation normal respiratory effort Auscultation: lungs clear to auscultation bilaterally Cardiovascular: Rate/Rhythm: regular rate and regular rhythm Gastrointestinal (Abdomen): normal bowel sounds, soft, nontender, no hepatosplenomegaly Musculoskeletal: no cyanosis or clubbing, extremities motor strength 5/5 Left knee-wrapped up status positive procedure, dressing clean dry and intact. Skin: no rashes, warm and dry Neurologic: patellar DTR's 2+ bilat, sensation intact Psychiatric: A+Ox3, euthymic affect Lymphatic: no cervical or axillary lymphadenopathy Results & Data Vital Signs (Past 12 Hours) Vital Signs Temp Pulse Pulse Resp BP BP Pulse Ox 07/17/19 11:40 36.4 C L 70 16 155/73 H 96 07/17/19 10:35 36.6 C 75 18 158/84 H 97 07/17/19 10:05 36.6 C 75 16 166/79 H 96 07/17/19 09:35 36.6 C 76 14 178/75 H 96 07/17/19 09:20 36.7 C 77 14 181/75 H 95 07/17/19 09:10 78 14 180/71 H 94 07/17/19 09:00 82 14 174/77 H 96 07/17/19 08:53 36.7 C 82 12 164/79 H 96 07/17/19 05:43 36.8 C 74 18 181/89 H 94 PG Care Time/CCT Total # of Minutes Spent Total Time Spent with Patient: Total time spent is greater than 50% in coordination of care (as documented) at patient's floor/unit and/or counseling patient:
[2019-07-17] MEDS: SODIUM CHLORIDE 0.9% 1000ML 1,000 ML IV SCH ×2 (14:20→23:29)
[2019-07-17] MEDS: ACETAMINOPHEN 500 MG TAB PO SCH ×2 (14:23→21:25)
--- NOTE | 2019-07-17 15:47 | Pharmacy Report ---
Glycemic Control Consultation - Date of Service July 17, 2019 - Scope Scope: Glycemic Pharmacist consulted by Dr [] on [date] for glycemic control and to write orders per [facility] inpatient glycemic control protocol - Objective Weight: 76 kg Accuchecks BSG (last 24hrs): 07/17/19 07/17/19 07/17/19 05:40 08:57 10:17 POC Glucose 155 H 151 H 189 H 07/17/19 12:31 POC Glucose 238 H HbA1c: Hemoglobin A1c 7.6 % (4.5-5.6) H 06/18/19 09:55 - Recent Pertinent Medications Outpatient Anti-diabetic Regimen: * Metformin 500 mg PO BID * A1c = 7.6% % on 06/18/19 Risk Factors for Insulin Resistance: * Steroids: Dexamethasone 4 mg IV x 1 preop * Infection: Vancomycin x 1 dose postop * IVF: NS @ 100 ml/hr * Recent Surgery: L TKA today * Diet: T2DM - Assessment & Plan Assessment & Plan: ASSESSMENT: * 79 F admitted for L TKA today. Patient with Type 2 Diabetes managed at home by oral Metformin. * Oral agents are not recommended for inpatient use d/t drug interactions, changing PO intake, and difficulty titrating for acute hyper/hypoglycemia. ADA recommends re-initiating outpatient oral agents 1-2 days prior to discharge if/when appropriate if they were held on admission. * Will hold oral agents for admission and utilize SQ basal bolus insulin regimen which is the recommended regimen for inpatient glycemic control. Initiated weight based insulin dosing for insulin jean carlos patient and titrate based on BSG trends. * NPH 15 units was given this AM based on 0.2 units/kg/dose since patient received 4 mg IV Decadron in the OR today. * Novolog dose based on weight and stress of 7 due to expected hyperglycemic effect from steroid. * Will add another dose of NPH based on a scale with dinner meal today in case BSG continue to trend up. PLAN FOR INPATIENT GLYCEMIC CONTROL: * Holding outpatient oral diabetes medications * Basal insulin * NPH 15 units this AM * NPH with dinner based on scale as follows: - for BSG less than 170 - give 0 units - for BSG 170 or greater - give 5 units * Bolus insulin * NovoLog per scale ACHS or Q6hrs while NPO * Goal Range: Low 120 mg/dL - High 150 mg/dL * Correction Factor: 20 mg/dL/unit * Nutritional / Prandial insulin per carb ratio of 1 unit per 7 grams CHO consumed * Please note that the plan above was derived based on current level of insulin resistance and hospital stress. These recommendations are appropriate for inpatient admission only. Plan of care upon discharge will need to be reassessed to avoid potential outpatient hypo/hyperglycemia. Thank you.
[2019-07-17] MEDS ORDERED: GLUCOSE 40% GEL 15 GM TUBE PO PRN (16:00)
[2019-07-17] MEDS ORDERED: DEXTROSE 50% 50 ML SYRINGE IV PRN (16:00)
[2019-07-17] MEDS ORDERED: GLUCOSE 10 TABS/TUBE PO PRN (16:00)
[2019-07-17] MEDS ORDERED: GLUCAGON FOR INJ 1 MG VIAL IM PRN (16:00)
[2019-07-17] MEDS ORDERED: CARBOHYDRATES FOR HYPOGLYCEMIA PO PRN (16:00)
[2019-07-17] MEDS ORDERED: VANCOMYCIN HCL 1,250 MG in SODIUM CHLORIDE 0.9% 250 ML IV ONE (18:00)
[2019-07-17] MEDS: FENOFIBRATE ~ ORDER AWAITING ACTION SCH ×2 (18:17→23:26)
[2019-07-17] MEDS: SENNA 8.6 MG TAB PO SCH ×2 (20:12→20:19)
[2019-07-17] MEDS: ATORVASTATIN 40 MG TAB PO SCH (20:12)
[2019-07-17] MEDS: CETIRIZINE HCL 10 MG TABLET PO SCH (20:12)
[2019-07-17] MEDS: IPRATROPIUM BROMIDE NASAL SPRAY 0.06% 15ML NAE SCH (20:13)
[2019-07-18] MEDS: INSULIN ASPART 100 UNITS/ML 3 ML PEN SC SCH ×5 (03:39→21:00)
[2019-07-18] MEDS: SODIUM CHLORIDE 0.9% 1000ML 1,000 ML IV SCH (05:29)
[2019-07-18] MEDS: ACETAMINOPHEN 500 MG TAB PO SCH ×3 (05:30→21:46)
[2019-07-18 06:17] LABS: Hematocrit (blood only) 30.1 % (37-47); Hemoglobin 10.2 g/dL (12.0-16.0); Mean Corpuscular Hemoglobin 29.7 pg (25-34); Mean Corpuscular Hgb Conc 33.9 g/dL (32-36); Mean Corpuscular Volume 87.8 fL (80-100); Mean Platelet Volume 10.7 fL (7.4-10.4); Platelet Count 273 K/uL (130-400); RDW Coefficient of Variation 13.8 % (11.5-14.5); RDW Standard Deviation 44.3 fL (36.4-46.3); Red Blood Count 3.43 M/uL (4.2-5.4); White Blood Count 8.22 K/uL (4.8-10.8)
[2019-07-18 06:48] LABS: Calcium 9.1 mg/dl (8.5-10.1); Creatinine Clr Calc Pharmacy 36.6 ml/min; Potassium 3.7 mmol/L (3.5-5.1)
[2019-07-18] MEDS: FENOFIBRATE ~ ORDER AWAITING ACTION SCH ×3 (07:22→23:50)
[2019-07-18] MEDS: MULTIVITAMIN TAB PO SCH (08:31)
[2019-07-18] MEDS: PANTOprazole 40 MG TAB PO SCH (08:31)
[2019-07-18] MEDS: CHOLECALCIFEROL 1,000 UNITS TAB PO SCH (08:31)
[2019-07-18] MEDS: carvediloL 3.125 MG TAB PO SCH ×2 (08:32→20:51)
[2019-07-18] MEDS: ASPIRIN 81 MG ECTAB PO SCH ×2 (08:32→20:51)
[2019-07-18] MEDS: DOCUSATE SODIUM 100 MG CAP PO SCH ×2 (08:32→20:51)
[2019-07-18] MEDS: LISINOPRIL 40 MG TAB PO SCH (08:32)
[2019-07-18] MEDS: TRIAMCINOLONE ACET NASAL SPRAY 10.8ML BTL SCH (08:33)
--- NOTE | 2019-07-18 09:20 | Orthopedic Progress Note ---
Date of Service July 18, 2019 Assessment & Plan (1) Status post left knee replacement: 79 yo female stable POD # 1 s/p left TKA 1. Med management 2. DVT prophylaxis- ASA, SCDs 3. PT/OT 4. D/C planning- home w/ HH Subjective Pt sitting in chair, eating breakfast, denies complaints Physical Exam Physical Exam: Toes mobile, N/V/I, dressing and drain in place Results & Data Vital Signs (Past 12 Hours) Vital Signs Temp Pulse Pulse Resp BP BP Pulse Ox 07/18/19 07:14 36.8 C 71 16 178/67 H 96 07/18/19 04:19 36.7 C 69 16 147/69 H 92 07/17/19 23:55 36.9 C 70 16 164/82 H 99 Laboratory Results 07/18/19 07/18/19 07/18/19 Range/Units 08:18 05:24 05:24 WBC (4.8-10.8) K/uL RBC (4.2-5.4) M/uL Hgb (12.0-16.0) g/dL Hct (37-47) % MCV (80-100) fL MCH (25-34) pg MCHC (32-36) g/dL RDW Std Deviation (36.4-46.3) fL RDW Coeff of Marco (11.5-14.5) % Plt Count (130-400) K/uL MPV (7.4-10.4) fL Sodium 141 (136-145) mmol/L Potassium 3.7 (3.5-5.1) mmol/L Chloride 109 H (98-107) mmol/L Carbon Dioxide 25 (21-32) mmol/L Anion Gap 7.0 (3-11) BUN 28 H (7-18) mg/dl Creatinine 1.17 (0.6-1.2) mg/dl Est Cr Clr Drug Dosing 36.6 ml/min Est GFR ( Amer) 51.0 Est GFR (Non-Af Amer) 44.0 BUN/Creatinine Ratio 24.0 H (10-20) Glucose 137 H (70-99) mg/dl POC Glucose 138 H (70-99) Estimat Average Glucose Pending Hemoglobin A1c Pending Calcium 9.1 (8.5-10.1) mg/dl Triglycerides 208 H (0-150) mg/dl Cholesterol 114 (0-200) mg/dl LDL Cholesterol, Calc 35 mg/dl VLDL Cholesterol, Calc 42 mg/dl HDL Cholesterol 37 mg/dl Cholesterol/HDL Ratio 3 07/18/19 07/18/19 07/17/19 Range/Units 05:24 03:31 23:24 WBC 8.22 (4.8-10.8) K/uL RBC 3.43 L (4.2-5.4) M/uL Hgb 10.2 L (12.0-16.0) g/dL Hct 30.1 L (37-47) % MCV 87.8 (80-100) fL MCH 29.7 (25-34) pg MCHC 33.9 (32-36) g/dL RDW Std Deviation 44.3 (36.4-46.3) fL RDW Coeff of Marco 13.8 (11.5-14.5) % Plt Count 273 (130-400) K/uL MPV 10.7 H (7.4-10.4) fL Sodium (136-145) mmol/L Potassium (3.5-5.1) mmol/L Chloride (98-107) mmol/L Carbon Dioxide (21-32) mmol/L Anion Gap (3-11) BUN (7-18) mg/dl Creatinine (0.6-1.2) mg/dl Est Cr Clr Drug Dosing ml/min Est GFR ( Amer) Est GFR (Non-Af Amer) BUN/Creatinine Ratio (10-20) Glucose (70-99) mg/dl POC Glucose 146 H 158 H (70-99) Estimat Average Glucose Hemoglobin A1c Calcium (8.5-10.1) mg/dl Triglycerides (0-150) mg/dl Cholesterol (0-200) mg/dl LDL Cholesterol, Calc mg/dl VLDL Cholesterol, Calc mg/dl HDL Cholesterol mg/dl Cholesterol/HDL Ratio 07/17/19 07/17/19 07/17/19 Range/Units 20:47 17:24 12:31 WBC (4.8-10.8) K/uL RBC (4.2-5.4) M/uL Hgb (12.0-16.0) g/dL Hct (37-47) % MCV (80-100) fL MCH (25-34) pg MCHC (32-36) g/dL RDW Std Deviation (36.4-46.3) fL RDW Coeff of Marco (11.5-14.5) % Plt Count (130-400) K/uL MPV (7.4-10.4) fL Sodium (136-145) mmol/L Potassium (3.5-5.1) mmol/L Chloride (98-107) mmol/L Carbon Dioxide (21-32) mmol/L Anion Gap (3-11) BUN (7-18) mg/dl Creatinine (0.6-1.2) mg/dl Est Cr Clr Drug Dosing ml/min Est GFR ( Amer) Est GFR (Non-Af Amer) BUN/Creatinine Ratio (10-20) Glucose (70-99) mg/dl POC Glucose 188 H 200 H 238 H (70-99) Estimat Average Glucose Hemoglobin A1c Calcium (8.5-10.1) mg/dl Triglycerides (0-150) mg/dl Cholesterol (0-200) mg/dl LDL Cholesterol, Calc mg/dl VLDL Cholesterol, Calc mg/dl HDL Cholesterol mg/dl Cholesterol/HDL Ratio 07/17/19 Range/Units 10:17 WBC (4.8-10.8) K/uL RBC (4.2-5.4) M/uL Hgb (12.0-16.0) g/dL Hct (37-47) % MCV (80-100) fL MCH (25-34) pg MCHC (32-36) g/dL RDW Std Deviation (36.4-46.3) fL RDW Coeff of Marco (11.5-14.5) % Plt Count (130-400) K/uL MPV (7.4-10.4) fL Sodium (136-145) mmol/L Potassium (3.5-5.1) mmol/L Chloride (98-107) mmol/L Carbon Dioxide (21-32) mmol/L Anion Gap (3-11) BUN (7-18) mg/dl Creatinine (0.6-1.2) mg/dl Est Cr Clr Drug Dosing ml/min Est GFR ( Amer) Est GFR (Non-Af Amer) BUN/Creatinine Ratio (10-20) Glucose (70-99) mg/dl POC Glucose 189 H (70-99) Estimat Average Glucose Hemoglobin A1c Calcium (8.5-10.1) mg/dl Triglycerides (0-150) mg/dl Cholesterol (0-200) mg/dl LDL Cholesterol, Calc mg/dl VLDL Cholesterol, Calc mg/dl HDL Cholesterol mg/dl Cholesterol/HDL Ratio
[2019-07-18] MEDS: METFORMIN HCL 500 MG TAB PO SCH ×2 (10:26→17:53)
--- NOTE | 2019-07-18 11:24 | Hospitalist Progress Note ---
Date of Service July 18, 2019 Assessment & Plan (1) Benign essential hypertension: BP elevated this morning as well as high as 175/70, but asymptomatic. Looks like it has been consistently high with most readings ~160/70. - Continue home medication carvedilol 3.125 mg p.o. twice daily hydralazine 25 mg p.o. 3 times daily, lisinopril 40 mg p.o. every morning. Monitor blood pressure every 4 hours. - Outpatient follow up with PCP. (2) 3-vessel CAD: No chest pain. - Continue aspirin 81 mg p.o. every morning when appropriate pair Ortho. Continue omega 3 fish oil 1 capsule p.o. twice daily. Continue atorvastatin 80 mg p.o. nightly. (3) Type 2 diabetes mellitus: A1c was 7.6% in 05/2019. - Use sliding scale insulin. Accu-Cheks before meals and at bedtime. - Continue metformin on discharge. - Glycemic control per pharmacy. (4) Vitamin D deficiency: Continue vitamin D 3000 units p.o. every morning. Given medical stability, Hospital Medicine team will sign off. Please re-consult with any questions or concerns. Thank you for letting us assist in the care of this patient! Subjective Doing well this morning. No major concerns/complaints. She has minimal left knee pain. Her dizziness from last night has resolved. Reports no fevers/chills, chest pain, shortness of breath, abdominal pain, nausea, or vomiting. Physical Exam Constitutional: WD/WN, vitals as above Eyes: EOM intact bilaterally; no conjunctival abnormality ENMT: external ear and nose normal, oropharynx normal Neck: trachea midline, no thyromegaly normal visual inspection Respiratory: normal respiratory effort, lungs clear to auscultation no respiratory distress Cardiovascular: RRR, no murmur, no edema Gastrointestinal (Abdomen): Inspection/Auscultation: abdomen normal to inspection; abdomen not distended Musculoskeletal: no cyanosis or clubbing, extremities motor strength 5/5 Left knee bandaged. Skin: no rashes, warm and dry Neurologic: moves all extremities and awake Psychiatric: Orientation: alert, oriented to person and cooperative Results & Data Vital Signs (Past 12 Hours) Vital Signs Temp Pulse Pulse Resp BP BP Pulse Ox 07/18/19 07:14 36.8 C 71 16 178/67 H 96 07/18/19 04:19 36.7 C 69 16 147/69 H 92 07/17/19 23:55 36.9 C 70 16 164/82 H 99 PG Care Time/CCT Total # of Minutes Spent Total Time Spent with Patient: Total time spent is greater than 50% in coordination of care (as documented) at patient's floor/unit and/or counseling patient:
[2019-07-18] MEDS: TRAMADOL HCL 50 MG TABLET PO PRN ×3 (13:14→23:48)
--- NOTE | 2019-07-18 14:55 | Pharmacy Report ---
Pharmacy Glycemic Short Note 2 - Date of Service July 18, 2019 - Glycemic Short BSG Results (Last 24 hours): 07/17/19 07/17/19 07/17/19 17:24 20:47 23:24 Glucose POC Glucose 200 H 188 H 158 H 07/18/19 07/18/19 07/18/19 03:31 05:24 08:18 Glucose 137 H POC Glucose 146 H 138 H 07/18/19 12:14 Glucose POC Glucose 138 H Outpatient Anti-diabetic Regimen: * Metformin 500 mg PO BID * A1c = 7.6% % on 06/18/19 ASSESSMENT: 07/18/19 * BSGs have been relatively well-controlled post-op. * Resumed metformin this morning, as pt seems to be tolerating diet. * Carb coverage provided through lunch today, then removed. 07/17/19 * 79 F admitted for L TKA today. Patient with Type 2 Diabetes managed at home by oral Metformin. * Oral agents are not recommended for inpatient use d/t drug interactions, changing PO intake, and difficulty titrating for acute hyper/hypoglycemia. ADA recommends re-initiating outpatient oral agents 1-2 days prior to discharge if/when appropriate if they were held on admission. * Will hold oral agents for admission and utilize SQ basal bolus insulin regimen which is the recommended regimen for inpatient glycemic control. Initiated weight based insulin dosing for insulin jean carlos patient and titrate based on BSG trends. * NPH 15 units was given this AM based on 0.2 units/kg/dose since patient received 4 mg IV Decadron in the OR today. * Novolog dose based on weight and stress of 7 due to expected hyperglycemic effect from steroid. * Will add another dose of NPH based on a scale with dinner meal today in case BSG continue to trend up. PLAN FOR INPATIENT GLYCEMIC CONTROL: * Holding outpatient oral diabetes medications * Basal insulin * no further basal insulin at this time * Bolus insulin * NovoLog per scale ACHS or Q6hrs while NPO * Goal Range: Low 120 mg/dL - High 150 mg/dL * Correction Factor: 30 mg/dL/unit * Nutritional / Prandial insulin: provided with lunch today, then discontinued as pt resumes home metformin PLAN FOR DISCHARGE: * A1c 7.6% indicates good glycemic control as an outpatient. * Expect that pt may resume home regimen on discharge.
[2019-07-18] MEDS: SENNA 8.6 MG TAB PO SCH (20:51)
[2019-07-18] MEDS: CETIRIZINE HCL 10 MG TABLET PO SCH (20:51)
[2019-07-18] MEDS: ATORVASTATIN 40 MG TAB PO SCH (20:51)
[2019-07-18] MEDS: IPRATROPIUM BROMIDE NASAL SPRAY 0.06% 15ML NAE SCH (20:55)
[2019-07-19 05:36] LABS: Hematocrit (blood only) 29.5 % (37-47); Mean Corpuscular Hemoglobin 29.9 pg (25-34); Mean Corpuscular Hgb Conc 33.9 g/dL (32-36); Mean Corpuscular Volume 88.1 fL (80-100); Mean Platelet Volume 10.6 fL (7.4-10.4); Platelet Count 251 K/uL (130-400); RDW Coefficient of Variation 14.1 % (11.5-14.5); RDW Standard Deviation 45.5 fL (36.4-46.3); Red Blood Count 3.35 M/uL (4.2-5.4); White Blood Count 5.34 K/uL (4.8-10.8)
[2019-07-19 06:13] LABS: Calcium 8.9 mg/dl (8.5-10.1); Creatinine Clr Calc Pharmacy 37.9 ml/min; Est GFR (African American) 53.2; Est GFR (Non-African American) 45.9; Potassium 3.7 mmol/L (3.5-5.1)
[2019-07-19] MEDS: ACETAMINOPHEN 500 MG TAB PO SCH (06:16)
[2019-07-19 07:09] LABS: Estimated Average Glucose 157 mg/dl; Hemoglobin A1C 7.1 % (4.5-5.6)
[2019-07-19] MEDS: TRAMADOL HCL 50 MG TABLET PO PRN ×2 (07:45→12:30)
[2019-07-19] MEDS: METFORMIN HCL 500 MG TAB PO SCH (07:46)
[2019-07-19] MEDS: FENOFIBRATE ~ ORDER AWAITING ACTION SCH (07:47)
[2019-07-19] MEDS: INSULIN ASPART 100 UNITS/ML 3 ML PEN SC SCH ×2 (07:52→12:33)
[2019-07-19] MEDS: MULTIVITAMIN TAB PO SCH (08:42)
[2019-07-19] MEDS: TRIAMCINOLONE ACET NASAL SPRAY 10.8ML BTL SCH (08:42)
[2019-07-19] MEDS: PANTOprazole 40 MG TAB PO SCH (08:42)
[2019-07-19] MEDS: CHOLECALCIFEROL 1,000 UNITS TAB PO SCH (08:42)
[2019-07-19] MEDS: DOCUSATE SODIUM 100 MG CAP PO SCH (08:43)
[2019-07-19] MEDS: carvediloL 3.125 MG TAB PO SCH (08:43)
[2019-07-19] MEDS: LISINOPRIL 40 MG TAB PO SCH (08:43)
[2019-07-19] MEDS: ASPIRIN 81 MG ECTAB PO SCH (08:44)
--- NOTE | 2019-07-19 08:47 | Orthopedic Progress Note ---
Date of Service July 19, 2019 Assessment & Plan (1) Status post left knee replacement: 79 yo female stable POD # 2 s/p left TKA 1. Med management 2. DVT prophylaxis- ASA, SCDs 3. PT/OT 4. D/C planning- home w/ HH Subjective Pt sitting in chair, eating breakfast, denies complaints Physical Exam Physical Exam: Silverlon dressing intact, blood saturated, will change prior to discharge, calf soft, NT, toes mobile Results & Data Vital Signs (Past 12 Hours) Vital Signs Temp Pulse Resp BP BP Pulse Ox 07/19/19 06:24 36.5 C 71 18 191/83 H 93 07/19/19 03:15 181/78 H 07/18/19 23:38 205/93 H 07/18/19 23:15 36.7 C 71 16 194/85 H 92 07/18/19 22:30 178/78 H 07/18/19 20:49 172/88 H Laboratory Results 07/19/19 07/19/19 07/19/19 Range/Units 06:18 05:19 05:19 WBC 5.34 (4.8-10.8) K/uL RBC 3.35 L (4.2-5.4) M/uL Hgb 10.0 L (12.0-16.0) g/dL Hct 29.5 L (37-47) % MCV 88.1 (80-100) fL MCH 29.9 (25-34) pg MCHC 33.9 (32-36) g/dL RDW Std Deviation 45.5 (36.4-46.3) fL RDW Coeff of Marco 14.1 (11.5-14.5) % Plt Count 251 (130-400) K/uL MPV 10.6 H (7.4-10.4) fL Sodium 140 (136-145) mmol/L Potassium 3.7 (3.5-5.1) mmol/L Chloride 107 (98-107) mmol/L Carbon Dioxide 25 (21-32) mmol/L Anion Gap 7.0 (3-11) BUN 28 H (7-18) mg/dl Creatinine 1.13 (0.6-1.2) mg/dl Est Cr Clr Drug Dosing 37.9 ml/min Est GFR ( Amer) 53.2 Est GFR (Non-Af Amer) 45.9 BUN/Creatinine Ratio 25.0 H (10-20) Glucose 137 H (70-99) mg/dl POC Glucose 141 H (70-99) Estimat Average Glucose mg/dl Hemoglobin A1c (4.5-5.6) % Calcium 8.9 (8.5-10.1) mg/dl 07/18/19 07/18/19 07/18/19 Range/Units 20:39 17:12 12:14 WBC (4.8-10.8) K/uL RBC (4.2-5.4) M/uL Hgb (12.0-16.0) g/dL Hct (37-47) % MCV (80-100) fL MCH (25-34) pg MCHC (32-36) g/dL RDW Std Deviation (36.4-46.3) fL RDW Coeff of Marco (11.5-14.5) % Plt Count (130-400) K/uL MPV (7.4-10.4) fL Sodium (136-145) mmol/L Potassium (3.5-5.1) mmol/L Chloride (98-107) mmol/L Carbon Dioxide (21-32) mmol/L Anion Gap (3-11) BUN (7-18) mg/dl Creatinine (0.6-1.2) mg/dl Est Cr Clr Drug Dosing ml/min Est GFR ( Amer) Est GFR (Non-Af Amer) BUN/Creatinine Ratio (10-20) Glucose (70-99) mg/dl POC Glucose 176 H 155 H 138 H (70-99) Estimat Average Glucose mg/dl Hemoglobin A1c (4.5-5.6) % Calcium (8.5-10.1) mg/dl 07/18/19 Range/Units 05:24 WBC (4.8-10.8) K/uL RBC (4.2-5.4) M/uL Hgb (12.0-16.0) g/dL Hct (37-47) % MCV (80-100) fL MCH (25-34) pg MCHC (32-36) g/dL RDW Std Deviation (36.4-46.3) fL RDW Coeff of Marco (11.5-14.5) % Plt Count (130-400) K/uL MPV (7.4-10.4) fL Sodium (136-145) mmol/L Potassium (3.5-5.1) mmol/L Chloride (98-107) mmol/L Carbon Dioxide (21-32) mmol/L Anion Gap (3-11) BUN (7-18) mg/dl Creatinine (0.6-1.2) mg/dl Est Cr Clr Drug Dosing ml/min Est GFR ( Amer) Est GFR (Non-Af Amer) BUN/Creatinine Ratio (10-20) Glucose (70-99) mg/dl POC Glucose (70-99) Estimat Average Glucose 157 mg/dl Hemoglobin A1c 7.1 H (4.5-5.6) % Calcium (8.5-10.1) mg/dl
== END 2019-07-19 13:07 | disposition home health service (06) | DRG 470 ==
LOC: ASU 05:06 → 3E 08:56